=== PATIENT | male | born 1965 | race Caucasian/White ===

== ENCOUNTER 2018-05-19 22:05 | Emergency (ER) | payer BC ==
[~2018-05-19] VITALS: Ht 170.2 cm; Wt 121.6 kg
[2018-05-19 22:13] VITALS: Ht 170.2 cm; Wt 121.6 kg
[2018-05-20 00:41] VITALS: BP 154/92
== END 2018-05-20 00:42 | disposition home or self-care (01) ==
LOC: ED 22:05
DX: S61.432A Puncture wound without foreign body of left hand, initial encounter (principal); M79.641 Pain in right hand; I10 Essential (primary) hypertension; W54.0XXA Bitten by dog, initial encounter; Y93.89 Activity, other specified; Y92.89 Other specified places as the place of occurrence of the external cause; Y99.8 Other external cause status
CPT/HCPCS: J1885; Q0092